=== PATIENT | male | born 1975 | race Caucasian/White ===

== ENCOUNTER 2020-03-25 04:08 | Emergency (ER) | payer BC ==
[2020-03-25] MEDS ORDERED: Diazepam 5 MG TAB ONE (04:23)
[2020-03-25] MEDS ORDERED: Morphine 10 MG/ML VIAL ONE (04:23)
== END 2020-03-25 04:38 | disposition home or self-care (01) ==
LOC: ERS 04:08
DX: M54.5 Low back pain (principal); F17.210 Nicotine dependence, cigarettes, uncomplicated
CPT/HCPCS: 96372; 99283; J2270